=== PATIENT | male | born 1955 ===

== ENCOUNTER 2023-09-10 08:08 | Outpatient (CLI) | payer OTHER ==
[2023-09-10 08:43] LABS: HEMOGLOBIN 14.6 g/dL (13-16.00); MEAN CELL VOLUME 82.7 fL (80.0-100.00); MEAN CORPUSCULAR HEMOGLOBIN 28.2 pg (27.00-32.0); MEAN CORPUSCULAR HGB CONC 34.1 g/dl (32.0-36.0); PLATELET COUNT 224 K/uL (150-450); RED BLOOD COUNT 5.19 M/uL (4.00-6.00); RED CELL DISTRIBUTION WIDTH 13.8 % (11.5-14.5)
[2023-09-10 09:08] LABS: INR 1.02; PARTIAL THROMBOPLASTIN TIME 27.6 SECONDS (22.0-34.0); PROTHROMBIN TIME 10.7 SECONDS (9.0-11.5)
[2023-09-10 09:09] LABS: ALBUMIN 4.6 gm/dL (3.4-5.0); BILIRUBIN TOTAL 0.53 mg/dL (0.3-1.2); CALCIUM 9.3 mg/dL (8.5-10.1); CREATININE SERUM 1.16 mg/dL (0.70-1.30); GFR 62.99; GLOBULINA 3.7 G/DL (2.4-3.5); POTASSIUM 4.01 mEq/L (3.5-5.1); TOTAL PROTEIN 8.3 gm/dL (6.4-8.2)
== END 2023-09-10 10:48 | disposition home or self-care (01) ==
LOC: LAB 08:08
PROVIDERS: ATTEND Surgery
DX: D12.5 Benign neoplasm of sigmoid colon (principal); R19.4 Change in bowel habit; R19.5 Other fecal abnormalities

== ENCOUNTER 2023-09-27 06:13 | Day surgery (SDC) | payer OTHER ==
[2023-09-27] MEDS ORDERED: PERCOCET 5-3251 EACH PO (08:16)
[2023-09-27] MEDS ORDERED: RECTICARE30 GM TOP (08:17)
== END 2023-09-27 12:25 | disposition home or self-care (01) ==
LOC: AMB-ENDOS 06:13
PROVIDERS: ATTEND Surgery
DX: K63.5 Polyp of colon (principal); K57.30 Diverticulosis of large intestine without perforation or abscess without bleeding; D12.5 Benign neoplasm of sigmoid colon